=== PATIENT | female | born 1970 | race Caucasian/White ===

== ENCOUNTER 2017-11-13 12:28 | Emergency (ER) | payer BC ==
[2017-11-13 12:38] VITALS: BP 135/88
--- NOTE | 2017-11-13 12:47 | UC ---
Throat Pain/Nasal Jethro HPI - HPI Summary HPI Summary: This patient is a 47 year old F presenting [place] [facility] [place] complaint of sore throat that began one day ago. The patient rates the pain 5/10 in severity. Patient reports ears are feeling plugged and fatigue. Patient denies fever and chills. - History of Current Complaint Chief Complaint: UCGeneralIllness Stated Complaint: SORE THROAT,EAR PAIN Time Seen by Provider: 11/13/17 12:42 Hx Obtained From: Patient Hx Last Menstrual Period: hyster Onset/Duration: Lasting Days - 1, Still Present Severity: Moderate Pain Intensity: 5 Pain Scale Used: 0-10 Numeric Associated Signs & Symptoms: Negative: Fever - Allergies/Home Medications Allergies/Adverse Reactions: Allergies Allergy/AdvReac Type Severity Reaction Status Date / Time clarithromycin [From Biaxin] Allergy vomiting/hi Verified 11/13/17 12:38 ves Home Medications: Home Medications Cyanocobalamin INJ * 1,000 mg INJ MONTHLY 11/13/17 [History Confirmed 11/13/17] Hydrochlorothiazide TAB* [Hydrodiuril TAB*] 25 mg PO BID 11/13/17 [History Confirmed 11/13/17] Levothyroxine TAB* [Synthroid 150 MCG TAB*] 150 mcg PO DAILY 11/13/17 [History Confirmed 11/13/17] buPROPion TAB* [Wellbutrin TAB*] 300 mg PO DAILY 11/13/17 [History Confirmed ] PMH/Surg Hx/FS Hx/Imm Hx Endocrine History: Thyroid Disease Cardiovascular History: Hypertension - Surgical History Surgical History: Yes Surgery Procedure, Year, and Place: hyster, 3 sinus, tonsil,gb,heel spur - Family History Known Family History: Positive: Hypertension, Diabetes - Social History Alcohol Use: None Substance Use Type: None Smoking Status (MU): Current Every Day Smoker Review of Systems Constitutional: Fatigue ENT: Sore Throat, Other - ears feel plugges All Other Systems Reviewed And Are Negative: Yes Physical Exam - Summary Physical Exam Summary: VITAL SIGNS: Reviewed. GENERAL: Patient is a well-developed and nourished female who is lying comfortable in the stretcher. Patient is not in any acute respiratory distress. HEAD AND FACE: Normocephalic EYES: PERRLA, EOMI x 2. EARS: Hearing grossly intact. MOUTH: pharyngeal erythema NECK: Supple, trachea is midline, no adenopathy, no JVD, no carotid bruit. CHEST: Symmetric, no tenderness at palpation LUNGS: Clear to auscultation bilaterally. No wheezing or crackles. CVS: Regular rate and rhythm, S1 and S2 present, no murmurs or gallops appreciated. ABDOMEN: Soft, non-tender. Bowel sounds are normal. No abdominal abnormal pulsations. EXTREMITIES: Full ROM in all major joints, no edema, no cyanosis or clubbing. NEURO: Alert and oriented x 3. No acute neurological deficits. Speech is normal and follows commands. SKIN: Dry and warm Triage Information Reviewed: Yes Vital Signs: Initial Vital Signs Temp 98 F 11/13/17 12:34 Pulse 78 11/13/17 12:34 Resp 16 11/13/17 12:34 BP 135/88 11/13/17 12:34 Pulse Ox 100 11/13/17 12:34 Vital Signs Reviewed: Yes Throat Pain/Nasal Course/Dx - Course Assessment/Plan: 47-year-old female presents to the urgent care with a chief complaint of sore throat. Rapid strep is positive. Patient was given a prescription for Augmentin and she will take ibuprofen at home for pain and fever. Patient is hemodynamically stable alert and oriented 3. Patient will follow-up with PCP as needed. - Differential Dx/Diagnosis Provider Diagnoses: strep throat Discharge - Sign-Out/Discharge Documenting (check all that apply): Patient Departure - Discharge Plan Condition: Stable Disposition: HOME Prescriptions: Amoxicillin/Clavulanate TAB* [Augmentin TAB 875*] 875 mg PO BID #20 tab Patient Education Materials: Strep Throat (ED) Referrals: [facility] [Outside] No Primary Care Phys,NOPCP [Primary Care Provider] - Additional Instructions: Take medications as instructed and adhere to plan Take Acetaminophen or ibuprofen for pain or fever Increase your fluid intake Return to the or go to the emergency department if symptoms worsen Follow-up with primary care physician in next 2-3 days - Billing Disposition and Condition Condition: STABLE Disposition: Home
== END 2017-11-13 13:04 | disposition home or self-care (01) ==
LOC: UCEAST 12:28
DX: J02.0 Streptococcal pharyngitis (principal); H93.8X3 Other specified disorders of ear, bilateral; R53.83 Other fatigue; E07.9 Disorder of thyroid, unspecified; I10 Essential (primary) hypertension; Z88.1 Allergy status to other antibiotic agents; Z82.49 Family history of ischemic heart disease and other diseases of the circulatory system; Z83.3 Family history of diabetes mellitus; F17.200 Nicotine dependence, unspecified, uncomplicated
CPT/HCPCS: 87651; 99212; G0463

== ENCOUNTER 2017-11-24 10:33 | Emergency (ER) | payer BC ==
[2017-11-24 12:11] VITALS: BP 124/85
--- NOTE | 2017-11-24 12:26 | UC ---
Throat Pain/Nasal Jethro HPI - HPI Summary HPI Summary: has been n Augmentin for 7 days for ear infection and strep throat has developed a painful red palate and tongue--- - History of Current Complaint Chief Complaint: UCGeneralIllness Stated Complaint: THROAT PAIN Time Seen by Provider: 11/24/17 12:19 Hx Obtained From: Patient Hx Last Menstrual Period: hyster ?: No Onset/Duration: Sudden Onset, Lasting Days - 1, Still Present Pain Intensity: 3 Pain Scale Used: 0-10 Numeric Cough: None Associated Signs & Symptoms: Positive: Negative - Allergies/Home Medications Allergies/Adverse Reactions: Allergies Allergy/AdvReac Type Severity Reaction Status Date / Time clarithromycin [From Biaxin] Allergy vomiting/hi Verified 11/24/17 12:01 ves PMH/Surg Hx/FS Hx/Imm Hx Previously Healthy: No Endocrine History: Hypothyroidism Cardiovascular History: Hypertension Psychological History: Depression - Surgical History Surgical History: Yes Surgery Procedure, Year, and Place: hysterectomy, 3 sinus surgeries, tonsilectomy, gallbladder removal,heel spur removal - Family History Known Family History: Positive: Hypertension, Diabetes - Social History Occupation: Employed Full-time Lives: With Family Alcohol Use: None Substance Use Type: None Smoking Status (MU): Current Every Day Smoker Amount Used/How Often: 1/3 PPD Review of Systems Constitutional: Negative Skin: Negative Eyes: Negative ENT: Negative, Other - mouth is red and sore Respiratory: Negative Cardiovascular: Negative Gastrointestinal: Negative Genitourinary: Negative Motor: Negative Neurovascular: Negative Musculoskeletal: Negative Neurological: Negative Psychological: Negative Is Patient Immunocompromised?: No All Other Systems Reviewed And Are Negative: Yes Physical Exam Triage Information Reviewed: Yes Appearance: Well-Appearing, No Pain Distress, Obese Vital Signs: Initial Vital Signs Temp 98.4 F 11/24/17 12:03 Pulse 83 11/24/17 12:03 Resp 18 11/24/17 12:03 BP 124/85 11/24/17 12:03 Pulse Ox 98 11/24/17 12:03 Vital Signs Reviewed: Yes Eye Exam: Normal Eyes: Positive: Conjunctiva Clear ENT Exam: Normal ENT: Positive: Normal ENT inspection, Hearing grossly normal, Pharyngeal erythema, TMs normal, Uvula midline. Negative: Nasal congestion, Trismus, Muffled voice, Hoarse voice, Dental tenderness, Sinus tenderness Dental Exam: Normal Neck exam: Normal Neck: Positive: Supple, Nontender, No Lymphadenopathy Respiratory Exam: Normal Respiratory: Positive: Chest non-tender, Lungs clear, Normal breath sounds, No respiratory distress, No accessory muscle use Cardiovascular Exam: Normal Cardiovascular: Positive: RRR, No Murmur, Pulses Normal, Brisk Capillary Refill Musculoskeletal Exam: Normal Musculoskeletal: Positive: Strength Intact, ROM Intact, No Edema Neurological Exam: Normal Neurological: Positive: Alert, Muscle Tone Normal Psychological Exam: Normal Skin Exam: Normal Throat Pain/Nasal Course/Dx - Course Assessment/Plan: finish augmentin, nystatin swish and swallow follow with pcp prn - Differential Dx/Diagnosis Provider Diagnoses: oral candidiasis Discharge - Sign-Out/Discharge Documenting (check all that apply): Patient Departure - Discharge Plan Condition: Stable Disposition: HOME Prescriptions: Nystatin SUSPENSION ORAL SYR* 500,000 units PO QID 10 Days #200 ml Patient Education Materials: Oral Candidiasis (ED) Referrals: [facility] [Outside] - If Needed - Billing Disposition and Condition Condition: STABLE Disposition: Home
== END 2017-11-24 12:38 | disposition home or self-care (01) ==
LOC: UCEAST 10:33
DX: B37.0 Candidal stomatitis (principal); I10 Essential (primary) hypertension; E03.9 Hypothyroidism, unspecified; F32.9 Major depressive disorder, single episode, unspecified; F17.210 Nicotine dependence, cigarettes, uncomplicated
CPT/HCPCS: 99212; G0463

== ENCOUNTER 2018-02-08 13:45 | Emergency (ER) | payer BC ==
[2018-02-08 14:24] VITALS: BP 157/95
--- NOTE | 2018-02-08 14:47 | UC ---
Complaint Female HPI - HPI Summary HPI Summary: 2 wk hx of intermittent dysuria, increased frequency and urge to urinate w/ oliguria. denies fever, vaginal discharge, back pain, abd pain, n/v. improves w / fluids, worsens w/ holding urine. Has not tried anything otc. She thinks it could be a warming lubricant her and her partner used. +sexually active. meds reviewed during this visit. - History Of Current Complaint Chief Complaint: UCGU Stated Complaint: URINARY ISSUE Time Seen by Provider: 02/08/18 14:35 Hx Obtained From: Patient Hx Last Menstrual Period: partial hysterectomy ?: No - +hysterectomy Timing: Intermittent Severity Initially: Mild Pain Intensity: 1 - Risk Factors Ovarian Torsion Risk Factor: Hysterectomy - Allergies/Home Medications Allergies/Adverse Reactions: Allergies Allergy/AdvReac Type Severity Reaction Status Date / Time ciprofloxacin [From Cipro] Allergy Hives Verified 02/08/18 14:24 clarithromycin [From Biaxin] Allergy vomiting/hi Verified 02/08/18 14:24 ves PMH/Surg Hx/FS Hx/Imm Hx Endocrine History: Hypothyroidism Cardiovascular History: Hypertension - Surgical History Surgical History: Yes Surgery Procedure, Year, and Place: hysterectomy, 3 sinus surgeries, tonsilectomy, gallbladder removal,heel spur removal, D&C - Family History Known Family History: Positive: Hypertension, Diabetes - Social History Alcohol Use: None Substance Use Type: None Smoking Status (MU): Current Every Day Smoker Amount Used/How Often: 1/3 PPD - Immunization History Most Recent Tetanus Shot: UTD Review of Systems Constitutional: Negative Gastrointestinal: Negative Genitourinary: Dysuria, Frequency Musculoskeletal: Negative All Other Systems Reviewed And Are Negative: Yes Physical Exam Triage Information Reviewed: Yes Appearance: Well-Appearing Vital Signs: Initial Vital Signs Temp 98.3 F 02/08/18 14:20 Pulse 87 02/08/18 14:20 Resp 18 02/08/18 14:20 BP 157/95 02/08/18 14:20 Pulse Ox 100 02/08/18 14:20 Vital Signs Reviewed: Yes Respiratory Exam: Normal Respiratory: Positive: Lungs clear Cardiovascular Exam: Normal Abdominal Exam: Normal, Other - pt declined gu exam Abdomen Description: Positive: Nontender. Negative: CVA Tenderness (R), CVA Tenderness (L) Pelvic Exam: Positive: Other - declined Psychological Exam: Normal Complaint Female Dx - Course Course Of Treatment: 2 wk hx of intermittent dysuria w/ + leuks on UA will tx emprically. cx pending. sending gc/chlam requested by pt. bp elevated, recommended f/u and to take her meds. - Differential Dx/Diagnosis Differential Diagnosis/HQI/PQRI: Sexually Transmitted Disease, Urinary Tract Infection Provider Diagnoses: UTI - Physician Notifications Discussed Patient Care With: Yahaira Quintana Time Discussed With Above Provider: 15:06 Discharge - Sign-Out/Discharge Documenting (check all that apply): Patient Departure All imaging exams completed and their final reports reviewed: No Studies - Discharge Plan Condition: Good Disposition: HOME Prescriptions: Sulfamethox/Trimethoprim DS* [Bactrim DS 800/160 TAB*] 1 tab PO BID #6 tab Patient Education Materials: Urinary Tract Infection in Women (ED) Referrals: No Primary Care Phys,NOPCP [Primary Care Provider] - - Billing Disposition and Condition Condition: GOOD Disposition: Home - Attestation Statements Provider Attestation: I was available for consult. This patient was seen by the ABDELRAHMAN. The patient was not presented to me, but not seen or examined by me. -Vicki
== END 2018-02-08 15:30 | disposition home or self-care (01) ==
LOC: UCEAST 13:45
DX: N39.0 Urinary tract infection, site not specified (principal); Z90.711 Acquired absence of uterus with remaining cervical stump; Z88.1 Allergy status to other antibiotic agents; F17.200 Nicotine dependence, unspecified, uncomplicated
CPT/HCPCS: 81003; 87086; 87491; 87591; 99212; G0463

== ENCOUNTER 2018-03-13 15:07 | Emergency (ER) | payer BC ==
--- NOTE | 2018-03-13 15:16 | UC ---
Complaint Female HPI - HPI Summary HPI Summary: 47 yo female presents with urinary pressure, burning, and frequency since yesterday. She took AZO today and her symptoms mildly improved. She tells me that she had a UTI about a month ago and was rx'd Bactrim for 3 days. Her symptoms resolved for about a week and then returned, but did not get bad until yesterday. She is also having some right flank pain. Denies fever, chills, abdominal pain, hematuria, vaginal bleeding or discharge. - History Of Current Complaint Stated Complaint: BACK PAIN, AND BURNING URINATION Time Seen by Provider: 03/13/18 15:15 Hx Obtained From: Patient Hx Last Menstrual Period: partial hysterectomy Onset/Duration: Gradual Onset Severity Initially: Mild Severity Currently: Moderate Pain Intensity: 5 Pain Scale Used: 0-10 Numeric - Allergies/Home Medications Allergies/Adverse Reactions: Allergies Allergy/AdvReac Type Severity Reaction Status Date / Time ciprofloxacin [From Cipro] Allergy Hives Verified 03/13/18 15:13 clarithromycin [From Biaxin] Allergy vomiting/hi Verified 03/13/18 15:13 ves Home Medications: Home Medications Cranberry Conc/C/Bacill Coag [Azo Cranberry 250-30 mg] 1 tab PO Q6HR PRN [History Confirmed 03/13/18] PMH/Surg Hx/FS Hx/Imm Hx Endocrine History: Hypothyroidism Cardiovascular History: Hypertension Psychological History: Anxiety - Surgical History Surgical History: Yes Surgery Procedure, Year, and Place: hysterectomy, 3 sinus surgeries, tonsilectomy, gallbladder removal,heel spur removal, D&C - Family History Known Family History: Positive: Hypertension, Diabetes - Social History Occupation: Employed Full-time Lives: With Family Alcohol Use: None Substance Use Type: None Smoking Status (MU): Current Every Day Smoker Amount Used/How Often: 1/3 PPD - Immunization History Most Recent Tetanus Shot: UTD Review of Systems All Other Systems Reviewed And Are Negative: Yes Constitutional: Positive: Negative Skin: Positive: Negative Respiratory: Positive: Negative Cardiovascular: Positive: Negative Gastrointestinal: Positive: Negative Genitourinary: Positive: Dysuria, Frequency, Urgency Neurological: Positive: Negative Psychological: Positive: Negative Physical Exam - Summary Physical Exam Summary: GENERAL: NAD. WDWN. No pain distress. SKIN: No rashes, sores, lesions, or open wounds. NECK: Supple. Nontender. No lymphadenopathy. CHEST: CTAB. No r/r/w. No accessory muscle use. Breathing comfortably and in no distress. CV: RRR. Without m/r/g. Pulses intact. Cap refill <2seconds ABDOMEN: Soft. NTTP. No distention or guarding. No CVA tenderness. Bowel sounds present NEURO: Alert. PSYCH: Age appropriate behavior. Triage Information Reviewed: Yes Vital Signs: Vital Signs: Temp Pulse Resp BP Pulse Ox 97.9 F 84 18 141/79 98 03/13/18 15:15 03/13/18 15:15 03/13/18 15:15 03/13/18 15:15 03/13/18 15:15 Vital Signs Reviewed: Yes Complaint Female Dx - Course Course Of Treatment: Unable to perform UA as pt took AZO today. Will treat with Keflex and send her urine for culture. - Differential Dx/Diagnosis Provider Diagnoses: UTI Discharge - Sign-Out/Discharge Documenting (check all that apply): Patient Departure All imaging exams completed and their final reports reviewed: No Studies - Discharge Plan Condition: Stable Disposition: HOME Prescriptions: Cephalexin CAP* [Keflex CAP*] 500 mg PO BID #10 cap Patient Education Materials: Urinary Tract Infection in Women (DC) Referrals: No Primary Care Phys,NOPCP [Primary Care Provider] - Additional Instructions: If you develop a fever, shortness of breath, chest pain, new or worsening symptoms - please call your PCP or go to the ED. Your blood pressure was high at todays visit. Please see your primary provider within 4 weeks for recheck and re-evaluation. - Billing Disposition and Condition Condition: STABLE Disposition: Home
[2018-03-13 15:19] VITALS: BP 141/79
--- NOTE | 2018-03-14 16:27 | ED ---
Progress - Progress Note Progress Note: 03/14/2018 Urine culture positive for E.coli. Pt Rx Keflex which covers. Awaiting culture sensitivity, No change Valeria Bauman PA-C Course/Dx - Course Course Of Treatment: Unable to perform UA as pt took AZO today. Will treat with Keflex and send her urine for culture. Discharge - Sign-Out/Discharge Documenting (check all that apply): Patient Departure - d/c home All imaging exams completed and their final reports reviewed: No Studies - Discharge Plan Condition: Stable Disposition: HOME Prescriptions: Cephalexin CAP* [Keflex CAP*] 500 mg PO BID #10 cap Patient Education Materials: Urinary Tract Infection in Women (DC) Referrals: No Primary Care Phys,NOPCP [Primary Care Provider] - Additional Instructions: If you develop a fever, shortness of breath, chest pain, new or worsening symptoms - please call your PCP or go to the ED. Your blood pressure was high at todays visit. Please see your primary provider within 4 weeks for recheck and re-evaluation. - Billing Disposition and Condition Condition: STABLE Disposition: Home
== END 2018-03-13 16:07 | disposition home or self-care (01) ==
LOC: UCEAST 15:07
DX: N39.0 Urinary tract infection, site not specified (principal); F17.210 Nicotine dependence, cigarettes, uncomplicated
CPT/HCPCS: 87077; 87086; 87186; 99212; G0463

== ENCOUNTER 2022-12-26 07:17 | Observation (INO) ==
[~2022-12-26 07:17] MED LIST: Buffered Lidocaine 1% SYRIN 1 ml INTRADERM ONE
[2022-12-26] MEDS ORDERED: Chlorhexidine MOUTHWASH 0.12% 15 ML UDC ONE (07:33)
[2022-12-26] MEDS ORDERED: ceFAZolin 2 GM in NS PREMIX 2 GM/100 ML BAG IVPB ONE (07:42)
[2022-12-26] MEDS: Lactated Ringers 1000 ml BAG 1,000 ML IV SCH ×3 (08:10→17:40)
[2022-12-26 08:26] LABS: Rapid COVID-19 Molecular Undetected (Undetected)
[2022-12-26] MEDS ORDERED: ceFAZolin VIAL VIAL ONE (09:32)
[2022-12-26] MEDS ORDERED: Lidocaine 1% w EPI 1:100,000 MDV 20 ML VIAL ONE (09:32)
[2022-12-26] MEDS ORDERED: Thrombin 5,000 UNITS 1 APPLIC KIT - topical use - TOPICAL ONE (09:32)
[2022-12-26] MEDS ORDERED: Gelfoam Sponge SIZE 100 SPONGE ONE (09:32)
[2022-12-26] MEDS ORDERED: Midazolam 2 mg/2 ml VIAL 1 mg/ml 2 ml VIAL (2 mg) ONE (10:10)
[2022-12-26] MEDS ORDERED: Rocuronium 50 mg VIAL 10 mg/ml 5 ml VIAL (50 mg) ONE (10:21)
[2022-12-26] MEDS ORDERED: HYDROmorphone 0.5 MG/0.5 ML SYRINGE ONE ×2 (11:06→11:39)
[2022-12-26] MEDS ORDERED: Ondansetron 4 mg VIAL 2 MG/ML 2 ml VIAL IV PRN ×2 (11:13→14:04)
[2022-12-26] MEDS ORDERED: Naloxone 0.4 mg VIAL 0.4 mg/ml 1 ml VIAL IV PRN (11:13)
[2022-12-26] MEDS ORDERED: Acetaminophen IV 1 GM/100ML 1,000 MG/100 ML BAG IV ONE ×2 (11:13→11:47)
[2022-12-26] MEDS ORDERED: fentaNYL 100 mcg/2 ml 50 MCG/ML VIAL IV PRN (11:13)
[2022-12-26] MEDS ORDERED: Ondansetron 4 mg VIAL 2 MG/ML 2 ml VIAL ONE (11:40)
[2022-12-26] MEDS ORDERED: Succinylcholine 200 mg VIAL 20 mg/ml 10 ml VIAL (200 mg) ONE (11:40)
[2022-12-26] MEDS ORDERED: Dexamethasone IV 4 MG/ML VIAL 1 ml VIAL ONE (11:40)
[2022-12-26] MEDS ORDERED: Propofol 10 MG/ML 20 ML BTL ONE (11:40)
[2022-12-26] MEDS ORDERED: Sevoflurane BOTTLE ONE (12:10)
[2022-12-26] MEDS ORDERED: Calcium Carb (TUMS) 500 mg CHEW TAB PO PRN (14:04)
[2022-12-26] MEDS ORDERED: Senna TAB 8.6 mg TAB PO PRN (14:04)
[2022-12-26] MEDS ORDERED: Morphine 2 MG/ML SYRINGE IV PRN (14:04)
[2022-12-26] MEDS ORDERED: Albuterol/Ipratropium RESP(NF) MDI (Combivent Respimat) INH PRN (14:08)
[2022-12-26] MEDS ORDERED: Al Hydrox/Mg Hydrox/Simet LIQ 30 ML UDC PO PRN (14:17)
[2022-12-26] MEDS ORDERED: HYDROmorphone 1 MG/1 ML SYRINGE ONE (14:33)
[2022-12-26] MEDS: HYDROmorphone 1 MG/1 ML SYRINGE IV PRN ×3 (14:36→15:06)
[2022-12-26] MEDS ORDERED: Morphine 2 MG/ML SYRINGE ONE (17:06)
[2022-12-26] MEDS: HYDROcodone/ACETAMIN 5/325 mg TAB PO PRN (20:44)
[2022-12-27] MEDS: HYDROcodone/ACETAMIN 5/325 mg TAB PO PRN ×4 (00:41→13:16)
[2022-12-27] MEDS: Lactated Ringers 1000 ml BAG 1,000 ML IV SCH (05:42)
[2022-12-27] MEDS ORDERED: Nicotine PATCH 14 MG/24 HR PATCH TRANSDERM SCH (09:00)
[2022-12-27 14:01] VITALS: BP 110/71
== END 2022-12-27 18:15 | disposition home or self-care (01) ==
LOC: OR 07:17 → SSU 07:17
PROVIDERS: ADMIT Neurological Surgery; ATTEND Neurological Surgery

== ENCOUNTER 2023-01-30 15:48 | Inpatient (IN) ==
[2023-01-30 16:06] LABS: ABS Basophils 0.1 10^3/uL (0.0-0.1); ABS Eosinophils 0.7 10^3/uL (0.0-0.5); ABS Lymphocytes 0.8 10^3/uL (1.0-4.8); ABS Monocytes 1.3 10^3/uL (0.0-0.9); ABS Neutrophils 10.2 10^3/uL (1.5-7.6); Eosinophil % 5.6 %; Hematocrit 31.5 % (35-45); Hemoglobin 10.7 g/dL (11.5-14.3); Lymphocyte % 5.9 %; Mean Corpuscular Hemoglobin 29.4 pg (27-33); Mean Corpuscular Hgb Conc 33.9 g/dL (31-36); Mean Corpuscular Volume 86.7 fL (80-97); Mean Platelet Volume 6.6 fL (7.5-11.2); Platelet Count 446 10^3/uL (150-450); Red Blood Count 3.63 10^6/uL (3.63-4.92); Red Cell Distribution Width 16.4 % (12-17)
[2023-01-30 16:16] LABS: INR 1.07 (0.83-1.13)
[2023-01-30 16:27] LABS: Albumin 3.5 g/dL (3.2-5.2); Calcium 9.7 mg/dL (8.6-10.3); Potassium 3.4 mmol/L (3.5-5.0); Total Bilirubin 0.4 mg/dL (0.2-1.0)
[2023-01-30 16:33] LABS: Albumin/Globulin Ratio 1.4 (1-3); Creatinine, Serum 0.9 mg/dL (0.51-0.95); Globulin 2.5 g/dL (2-4); eGFR CKD-EPI 77.4 (>60)
[2023-01-30 17:41] LABS: High Sensitivity Troponin 1 Hr 3 pg/mL (<15)
[2023-01-30] MEDS ORDERED: HYDROcodone/ACETAMIN 5/325 mg TAB PO ONE (19:17)
[2023-01-30] MEDS ORDERED: Iohexol 350 (CONTRAST) 500 ML MDV IV ONE ×2 (21:11→23:31)
[2023-01-30] MEDS ORDERED: Morphine 4 MG/ML VIAL (1 ml) IV ONE (23:15)
[2023-01-31] MEDS ORDERED: Ondansetron 4 mg VIAL 2 MG/ML 2 ml VIAL IV PRN (04:08)
[2023-01-31] MEDS ORDERED: Al Hydrox/Mg Hydrox/Simet LIQ 30 ML UDC PO PRN (04:14)
[2023-01-31] MEDS ORDERED: Albuterol HFA INHALER 8 gm MDI INH PRN (04:14)
[2023-01-31] MEDS ORDERED: Calcium Carb (TUMS) 500 mg CHEW TAB PO PRN (04:14)
[2023-01-31] MEDS ORDERED: NS 0.9% 1000 ml BAG 1,000 ML IV SCH (04:15)
[2023-01-31] MEDS: HYDROcodone/ACETAMIN 5/325 mg TAB PO PRN ×3 (05:14→22:09)
[2023-01-31] MEDS: Morphine ER 15 mg TAB ** extended release PO SCH (12:19)
[2023-01-31] MEDS ORDERED: Midazolam 2 mg/2 ml VIAL 1 mg/ml 2 ml VIAL (2 mg) ONE (15:18)
[2023-01-31] MEDS ORDERED: Senna TAB 8.6 mg TAB PO PRN (15:34)
[2023-01-31] MEDS ORDERED: Polyethylene Glycol 3350 17 GM PACKET PO PRN (15:34)
[2023-01-31] MEDS ORDERED: Magnesium Hydroxide LIQ 30 ML UDC PO PRN (15:34)
[2023-01-31] MEDS ORDERED: Potassium Chlor 20 meq TAB.ER PO ONE (16:51)
[2023-01-31 20:46] LABS: Uric Acid 6.7 mg/dL (2.3-6.6)
[2023-01-31] MEDS: Magnesium Hydroxide LIQ 30 ML UDC PO SCH (21:41)
[2023-01-31] MEDS: Enoxaparin 40 MG/0.4 ML SYR SUBCUT SCH (21:42)
[2023-01-31 21:44] LABS: % Iron Saturation 9 % (15-55); .Transferrin 157 mg/dL (203-362); Iron < 20 ug/dL (50-212); LDH 422 U/L (140-271); Total Iron Binding Capacity 220 mcg/dL (250-450); Unsaturated Iron Binding 200 ug/dL
[2023-02-01] MEDS: Morphine ER 15 mg TAB ** extended release PO SCH (00:12)
[2023-02-01] MEDS: HYDROcodone/ACETAMIN 5/325 mg TAB PO PRN ×2 (06:02→20:16)
[2023-02-01 06:17] LABS: ABS Eosinophils 0.4 10^3/uL (0.0-0.5); ABS Lymphocytes 0.6 10^3/uL (1.0-4.8); ABS Monocytes 1.1 10^3/uL (0.0-0.9); ABS Neutrophils 6.7 10^3/uL (1.5-7.6); Eosinophil % 4.7 %; Hematocrit 28.6 % (35-45); Hemoglobin 9.9 g/dL (11.5-14.3); Lymphocyte % 6.6 %; Mean Corpuscular Hemoglobin 29.9 pg (27-33); Mean Corpuscular Hgb Conc 34.7 g/dL (31-36); Mean Platelet Volume 6.9 fL (7.5-11.2); Platelet Count 408 10^3/uL (150-450); Red Blood Count 3.32 10^6/uL (3.63-4.92); Red Cell Distribution Width 16.2 % (12-17); White Blood Count 8.7 10^3/uL (3.8-11.8)
[2023-02-01 06:51] LABS: Calcium 8.9 mg/dL (8.6-10.3); Creatinine, Serum 0.68 mg/dL (0.51-0.95); Magnesium 1.8 mg/dL (1.9-2.7); Potassium 3.8 mmol/L (3.5-5.0); eGFR CKD-EPI 105.4 (>60)
[2023-02-01] MEDS: Magnesium Hydroxide LIQ 30 ML UDC PO SCH ×2 (08:54→20:39)
[2023-02-01] MEDS ORDERED: Morphine ER 15 mg TAB ** extended release PO ONE (10:26)
[2023-02-01 13:03] LABS: Total Protein 5.8 g/dL (6.4-8.9)
[2023-02-01 17:16] LABS: Body Fluid Total Nucleated 4113 /mcL
[2023-02-01 17:23] LABS: Body Fluid Appearance Cloudy; Body Fluid Color Yellow; Body Fluid Source Pleural Fluid
[2023-02-01 17:41] LABS: Body Fluid Mono 28 %; Body Fluid Total Cells Counted 200
[2023-02-01] MEDS: Mometasone/Formoter 200/5 MDI INH SCH (20:01)
[2023-02-01] MEDS: Enoxaparin 40 MG/0.4 ML SYR SUBCUT SCH (20:09)
[2023-02-01] MEDS: Morphine ER 30 mg TAB ** extended release PO SCH (20:28)
[2023-02-01] MEDS: Senna TAB 8.6 mg TAB PO SCH (20:39)
[2023-02-02] MEDS: HYDROcodone/ACETAMIN 5/325 mg TAB PO PRN ×3 (03:53→22:17)
[2023-02-02] MEDS: Mometasone/Formoter 200/5 MDI INH SCH ×2 (08:11→19:12)
[2023-02-02 09:04] LABS: Calcium 8.6 mg/dL (8.6-10.3); Creatinine, Serum 0.73 mg/dL (0.51-0.95); Potassium 3.9 mmol/L (3.5-5.0); eGFR CKD-EPI 99.5 (>60)
[2023-02-02 09:15] LABS: ABS Basophils 0.1 10^3/uL (0.0-0.1); ABS Eosinophils 0.3 10^3/uL (0.0-0.5); ABS Lymphocytes 0.5 10^3/uL (1.0-4.8); ABS Neutrophils 6.1 10^3/uL (1.5-7.6); ABS Nucleated RBC 0.01 10^3/ul; Eosinophil % 4.3 %; Hematocrit 29.5 % (35-45); Hemoglobin 10.1 g/dL (11.5-14.3); Lymphocyte % 6.3 %; Mean Corpuscular Hemoglobin 29.5 pg (27-33); Mean Corpuscular Hgb Conc 34.4 g/dL (31-36); Mean Corpuscular Volume 85.9 fL (80-97); Mean Platelet Volume 6.9 fL (7.5-11.2); Nucleated Red Blood Cells % 0.1 /100 WBC (0.0-0.4); Platelet Count 391 10^3/uL (150-450); Red Blood Count 3.43 10^6/uL (3.63-4.92); Red Cell Distribution Width 16.1 % (12-17)
[2023-02-02] MEDS: Morphine ER 30 mg TAB ** extended release PO SCH ×2 (10:30→20:21)
[2023-02-02] MEDS: Magnesium Hydroxide LIQ 30 ML UDC PO SCH ×2 (11:03→20:20)
[2023-02-02 12:15] LABS: Beta 2 Microglobulin 3.32 mcg/mL
[2023-02-02] MEDS: Lactated Ringers 1000 ml BAG 1,000 ML IV SCH (16:39)
[2023-02-02 17:18] LABS: Hepatitis B Surface Antigen Nonreactive (Nonreactive)
[2023-02-02 17:35] LABS: Hepatitis B Surface Ab Not Immune (Immune)
[2023-02-02 17:36] LABS: Hepatitis C Antibody Negative (Negative)
[2023-02-02 20:00] LABS: Potassium 4.1 mmol/L (3.5-5.0)
[2023-02-02 20:05] LABS: Creatinine, Serum 0.76 mg/dL (0.51-0.95); eGFR CKD-EPI 94.8 (>60)
[2023-02-02] MEDS: Enoxaparin 40 MG/0.4 ML SYR SUBCUT SCH (20:20)
[2023-02-02] MEDS: Senna TAB 8.6 mg TAB PO SCH (20:22)
[2023-02-03 05:30] LABS: ABS Basophils 0.1 10^3/uL (0.0-0.1); ABS Eosinophils 0.4 10^3/uL (0.0-0.5); ABS Lymphocytes 0.6 10^3/uL (1.0-4.8); ABS Monocytes 0.9 10^3/uL (0.0-0.9); ABS Neutrophils 6.6 10^3/uL (1.5-7.6); Eosinophil % 5.1 %; Hematocrit 31.6 % (35-45); Hemoglobin 10.7 g/dL (11.5-14.3); Lymphocyte % 6.8 %; Mean Corpuscular Hemoglobin 29.3 pg (27-33); Mean Corpuscular Volume 85.9 fL (80-97); Mean Platelet Volume 6.6 fL (7.5-11.2); Platelet Count 420 10^3/uL (150-450); Red Blood Count 3.67 10^6/uL (3.63-4.92); Red Cell Distribution Width 16.4 % (12-17); White Blood Count 8.6 10^3/uL (3.8-11.8)
[2023-02-03 05:49] LABS: Phosphorus 4.4 mg/dL (2.5-5.0); Uric Acid 5.9 mg/dL (2.3-6.6)
[2023-02-03] MEDS: HYDROcodone/ACETAMIN 5/325 mg TAB PO PRN ×3 (06:07→19:49)
[2023-02-03] MEDS: Lactated Ringers 1000 ml BAG 1,000 ML IV SCH ×2 (06:07→19:40)
[2023-02-03] MEDS: Mometasone/Formoter 200/5 MDI INH SCH ×2 (07:13→19:14)
[2023-02-03] MEDS: Morphine ER 30 mg TAB ** extended release PO SCH ×2 (08:44→19:50)
[2023-02-03] MEDS: Magnesium Hydroxide LIQ 30 ML UDC PO SCH ×2 (08:46→19:51)
[2023-02-03] MEDS ORDERED: PALONOSETRON HCL 0.05 MG/ML (0.25 MG) SYRINGE (0.05 MG/ML) IV ONE (14:00)
[2023-02-03 14:02] LABS: Lactate Dehydrogenase, BF 842 U/L
[2023-02-03 14:21] LABS: Albumin 2.5 g/dL (3.4-4.7); Albumin/Globulin Ratio 0.85; Flag, M-protein Isotype Negative (Negative); Gamma Globulin 0.8 g/dL (0.6-1.6); Lambda Free Light Chain, S 1.78 mg/dL; Total Protein 5.4 g/dL (6.3 - 7.9)
[2023-02-03] MEDS ORDERED: NS 0.9% IVPB ONE (14:30)
[2023-02-03] MEDS ORDERED: CYCLOPHOSPHAMIDE IVPB ONE (14:30)
[2023-02-03] MEDS ORDERED: Prochlorperazine 5 mg/ml 2 ml VIAL (10 mg) IV PRN (14:43)
[2023-02-03] MEDS ORDERED: DOXORUBICIN IVPB ONE (15:00)
[2023-02-03] MEDS ORDERED: vinCRIStine 2 MG in NS 0.9% 50 ML 50 ML IVPB ONE (15:30)
[2023-02-03] MEDS: Enoxaparin 40 MG/0.4 ML SYR SUBCUT SCH (19:48)
[2023-02-03] MEDS: Senna TAB 8.6 mg TAB PO SCH (19:49)
[2023-02-04] MEDS: HYDROcodone/ACETAMIN 5/325 mg TAB PO PRN (04:09)
[2023-02-04 05:39] LABS: ABS Basophils 0.1 10^3/uL (0.0-0.1); ABS Lymphocytes 0.4 10^3/uL (1.0-4.8); ABS Monocytes 0.7 10^3/uL (0.0-0.9); ABS Neutrophils 10.2 10^3/uL (1.5-7.6); Hematocrit 27.5 % (35-45); Hemoglobin 9.4 g/dL (11.5-14.3); Lymphocyte % 3.3 %; Mean Corpuscular Hemoglobin 29.3 pg (27-33); Mean Corpuscular Hgb Conc 34.1 g/dL (31-36); Mean Platelet Volume 6.8 fL (7.5-11.2); Platelet Count 355 10^3/uL (150-450); Red Cell Distribution Width 16.1 % (12-17); White Blood Count 11.4 10^3/uL (3.8-11.8)
[2023-02-04 05:59] LABS: Phosphorus 4.1 mg/dL (2.5-5.0)
[2023-02-04] MEDS ORDERED: Albuterol 2.5mg/3 ml (0.083%) NEB.SOLN INH PRN (08:00)
[2023-02-04] MEDS ORDERED: methylPREDNISolone SOD SUCC 125 mg 2 ML VIAL IV PRN (08:00)
[2023-02-04] MEDS ORDERED: Meperidine 50 mg/ml SYRINGE 1 ml IV PRN (08:00)
[2023-02-04] MEDS ORDERED: Famotidine IV 10 MG/ML 2 ml VIAL (20 mg) IV PRN (08:00)
[2023-02-04] MEDS: Morphine ER 30 mg TAB ** extended release PO SCH ×2 (08:02→19:25)
[2023-02-04] MEDS: Magnesium Hydroxide LIQ 30 ML UDC PO SCH ×2 (08:02→19:25)
[2023-02-04] MEDS: Mometasone/Formoter 200/5 MDI INH SCH ×2 (08:04→19:19)
[2023-02-04] MEDS ORDERED: methylPREDNISolone SOD SUCC 125 mg 2 ML VIAL IV ONE (08:30)
[2023-02-04] MEDS ORDERED: Famotidine IV 10 MG/ML 2 ml VIAL (20 mg) IV ONE (08:30)
[2023-02-04] MEDS ORDERED: RITUXIMAB ABBS IVPB ONE (09:00)
[2023-02-04] MEDS ORDERED: NS 0.9% IVPB ONE (09:00)
[2023-02-04 09:09] LABS: Fluid Type, Protein, Total PLEURAL; Total Protein, BF 3.6 g/dL
[2023-02-04 10:01] LABS: Calcium 8.5 mg/dL (8.6-10.3); Creatinine, Serum 0.71 mg/dL (0.51-0.95); Potassium 4.5 mmol/L (3.5-5.0); eGFR CKD-EPI 102.9 (>60)
[2023-02-04] MEDS ORDERED: Furosemide 20 mg/2 ml IV VIAL IV ONE (11:57)
[2023-02-04] MEDS: Senna TAB 8.6 mg TAB PO SCH (19:25)
[2023-02-04] MEDS: Enoxaparin 40 MG/0.4 ML SYR SUBCUT SCH (19:27)
[2023-02-05 06:18] LABS: ABS Lymphocytes 0.3 10^3/uL (1.0-4.8); ABS Monocytes 0.3 10^3/uL (0.0-0.9); ABS Neutrophils 12.2 10^3/uL (1.5-7.6); ABS Nucleated RBC 0.01 10^3/ul; Eosinophil % 0.1 %; Hematocrit 28.5 % (35-45); Hemoglobin 9.6 g/dL (11.5-14.3); Lymphocyte % 2.3 %; Mean Corpuscular Hemoglobin 29.2 pg (27-33); Mean Corpuscular Hgb Conc 33.8 g/dL (31-36); Mean Corpuscular Volume 86.5 fL (80-97); Mean Platelet Volume 6.8 fL (7.5-11.2); Platelet Count 444 10^3/uL (150-450); Red Blood Count 3.29 10^6/uL (3.63-4.92); Red Cell Distribution Width 16.5 % (12-17); White Blood Count 12.8 10^3/uL (3.8-11.8)
[2023-02-05 06:30] LABS: Calcium 8.8 mg/dL (8.6-10.3); Creatinine, Serum 0.67 mg/dL (0.51-0.95); Phosphorus 3.2 mg/dL (2.5-5.0); Potassium 4.1 mmol/L (3.5-5.0); Uric Acid 7.1 mg/dL (2.3-6.6); eGFR CKD-EPI 105.8 (>60)
[2023-02-05] MEDS: Mometasone/Formoter 200/5 MDI INH SCH ×2 (07:10→20:20)
[2023-02-05] MEDS: Magnesium Hydroxide LIQ 30 ML UDC PO SCH ×2 (07:46→21:41)
[2023-02-05] MEDS: Morphine ER 30 mg TAB ** extended release PO SCH ×2 (07:48→21:40)
[2023-02-05] MEDS ORDERED: Furosemide 20 mg/2 ml IV VIAL IV ONE (09:14)
[2023-02-05] MEDS: Senna TAB 8.6 mg TAB PO SCH (21:40)
[2023-02-05] MEDS: Enoxaparin 40 MG/0.4 ML SYR SUBCUT SCH (21:43)
[2023-02-06 06:38] LABS: ABS Lymphocytes 0.4 10^3/uL (1.0-4.8); ABS Monocytes 0.1 10^3/uL (0.0-0.9); ABS Neutrophils 8.3 10^3/uL (1.5-7.6); Eosinophil % 0.2 %; Hematocrit 25.2 % (35-45); Hemoglobin 8.7 g/dL (11.5-14.3); Mean Corpuscular Hemoglobin 29.8 pg (27-33); Mean Corpuscular Hgb Conc 34.5 g/dL (31-36); Mean Corpuscular Volume 86.4 fL (80-97); Mean Platelet Volume 6.8 fL (7.5-11.2); Platelet Count 407 10^3/uL (150-450); Red Blood Count 2.92 10^6/uL (3.63-4.92); Red Cell Distribution Width 16.3 % (12-17); White Blood Count 8.9 10^3/uL (3.8-11.8)
[2023-02-06 06:48] LABS: Calcium 8.4 mg/dL (8.6-10.3); Creatinine, Serum 0.63 mg/dL (0.51-0.95); Magnesium 2.5 mg/dL (1.9-2.7); Phosphorus 3.7 mg/dL (2.5-5.0); Potassium 4.2 mmol/L (3.5-5.0); eGFR CKD-EPI 107.3 (>60)
[2023-02-06] MEDS: Mometasone/Formoter 200/5 MDI INH SCH ×2 (07:34→19:12)
[2023-02-06] MEDS: Magnesium Hydroxide LIQ 30 ML UDC PO SCH ×2 (08:37→20:56)
[2023-02-06] MEDS: Morphine ER 30 mg TAB ** extended release PO SCH ×2 (08:38→20:59)
[2023-02-06] MEDS ORDERED: fentaNYL 100 mcg/2 ml 50 MCG/ML VIAL ONE (10:22)
[2023-02-06] MEDS ORDERED: Midazolam 2 mg/2 ml VIAL 1 mg/ml 2 ml VIAL (2 mg) ONE (10:22)
[2023-02-06] MEDS ORDERED: Midazolam 10 mg/10 ml VIAL 1 mg/ml 10 ml VIAL (10 mg) IV SLOW PU ONE (11:19)
[2023-02-06] MEDS ORDERED: fentaNYL 100 mcg/2 ml 50 MCG/ML VIAL IV SLOW PU ONE (11:19)
[2023-02-06] MEDS ORDERED: Flumazenil 0.5 mg/5 ml 0.1 MG/ML 5 ml VIAL IV PRN (11:19)
[2023-02-06] MEDS ORDERED: Naloxone 0.4 mg VIAL 0.4 mg/ml 1 ml VIAL IV PUSH PRN (11:19)
[2023-02-06] MEDS: HYDROcodone/ACETAMIN 5/325 mg TAB PO PRN ×2 (12:39→16:25)
[2023-02-06] MEDS: Senna TAB 8.6 mg TAB PO SCH (21:00)
[2023-02-06] MEDS: Enoxaparin 40 MG/0.4 ML SYR SUBCUT SCH (21:01)
[2023-02-07] MEDS: HYDROcodone/ACETAMIN 5/325 mg TAB PO PRN (00:03)
[2023-02-07 06:16] LABS: ABS Lymphocytes 0.3 10^3/uL (1.0-4.8); ABS Neutrophils 5.9 10^3/uL (1.5-7.6); Eosinophil % 0.3 %; Hemoglobin 8.6 g/dL (11.5-14.3); Lymphocyte % 4.3 %; Mean Corpuscular Hemoglobin 29.5 pg (27-33); Mean Corpuscular Hgb Conc 34.2 g/dL (31-36); Mean Corpuscular Volume 86.3 fL (80-97); Mean Platelet Volume 6.7 fL (7.5-11.2); Platelet Count 425 10^3/uL (150-450); Red Cell Distribution Width 16.4 % (12-17); White Blood Count 6.2 10^3/uL (3.8-11.8)
[2023-02-07 06:34] LABS: Uric Acid 4.8 mg/dL (2.3-6.6)
[2023-02-07] MEDS: Mometasone/Formoter 200/5 MDI INH SCH (07:28)
[2023-02-07 08:20] LABS: Body Fluid Source Cerebral Spinal
[2023-02-07 09:25] LABS: Body Fluid Appearance Bloody; Body Fluid Color Pink; Body Fluid WBC 57 /mcL; CSF Tube # 2
[2023-02-07] MEDS: Morphine ER 30 mg TAB ** extended release PO SCH (09:32)
[2023-02-07] MEDS: Magnesium Hydroxide LIQ 30 ML UDC PO SCH (09:33)
[2023-02-07 10:05] LABS: Body Fluid Mono 1 %; Body Fluid Total Cells Counted 200
[2023-02-07 10:29] VITALS: BP 113/71
[2023-02-07] MEDS ORDERED: HYDROcodone/ACETAMIN 5/325 mg TAB PO PRN ×2 (13:39→13:40)
[2023-02-10 13:11] LABS: BLYM Result Summary Positive; BLYM Source Left iliac mass; BLYM Tissue ID S23-9070 B
== END 2023-02-07 14:00 | disposition home or self-care (01) | DRG 696 ==
LOC: EDHOLD 15:48 → ED 15:48 → SUATTDRO 01-31 04:08 → MED 01-31 15:23 → SUATTDRO 02-02 10:00
PROVIDERS: ADMIT Hospitalist; ATTEND Hospitalist

== ENCOUNTER 2023-03-05 18:12 | Observation (INO) ==
[2023-03-05 21:27] LABS: Hematocrit 31.8 % (35-45); Hemoglobin 10.6 g/dL (11.5-14.3); Mean Corpuscular Hemoglobin 28.4 pg (27-33); Mean Corpuscular Hgb Conc 33.3 g/dL (31-36); Mean Corpuscular Volume 85.2 fL (80-97); Mean Platelet Volume 7.3 fL (7.5-11.2); Platelet Count 349 10^3/uL (150-450); Red Blood Count 3.73 10^6/uL (3.63-4.92); Red Cell Distribution Width 18.8 % (12-17); White Blood Count 35.4 10^3/uL (3.8-11.8)
[2023-03-05 21:33] LABS: ABS Basophils 0.3 10^3/uL (0.0-0.1); ABS Eosinophils 0.6 10^3/uL (0.0-0.5); ABS Lymphocytes 0.4 10^3/uL (1.0-4.8); ABS Neutrophils 34.1 10^3/uL (1.5-7.6); Eosinophil % 1.7 %; Lymphocyte % 1.2 %
[2023-03-05 21:42] LABS: Albumin 3.4 g/dL (3.2-5.2); Calcium 8.4 mg/dL (8.6-10.3); Potassium 3.9 mmol/L (3.5-5.0); Total Bilirubin 0.4 mg/dL (0.2-1.0)
[2023-03-05 21:48] LABS: Albumin/Globulin Ratio 1.9 (1-3); Creatinine, Serum 0.65 mg/dL (0.51-0.95); Globulin 1.8 g/dL (2-4); Total Protein 5.2 g/dL (6.4-8.9); eGFR CKD-EPI 106.5 (>60)
[2023-03-05] MEDS ORDERED: Iohexol 350 (CONTRAST) 500 ML MDV IV ONE (21:59)
[2023-03-05] MEDS ORDERED: Al Hydrox/Mg Hydrox/Simet LIQ 30 ML UDC PO ONE (22:17)
[2023-03-05 23:04] LABS: High Sensitivity Troponin 1 Hr 3 pg/mL (<15)
[2023-03-06] MEDS ORDERED: Morphine ER 30 mg TAB ** extended release PO SCH (02:00)
[2023-03-06] MEDS ORDERED: Senna TAB 8.6 mg TAB PO PRN (02:02)
[2023-03-06] MEDS ORDERED: Polyethylene Glycol 3350 17 GM PACKET PO PRN (02:02)
[2023-03-06] MEDS: Pantoprazole VIAL 40 MG VIAL IV SCH ×2 (03:45→04:07)
[2023-03-06] MEDS: Sucralfate 1 gm SUSP 1 GM/10 ML UDC PO SCH ×3 (03:45→13:02)
[2023-03-06] MEDS: Prochlorperazine 5 mg/ml 2 ml VIAL (10 mg) IV PRN ×2 (04:29→10:20)
[2023-03-06] MEDS ORDERED: Lorazepam PYXIS KEY PRN (10:07)
[2023-03-06] MEDS ORDERED: LORazepam 2 mg VIAL 1 ml IV PUSH PRN (10:07)
[2023-03-06] MEDS ORDERED: fentaNYL 100 mcg/2 ml 50 MCG/ML VIAL ONE (13:14)
[2023-03-06] MEDS ORDERED: Lidocaine 1% VIAL 10 MG/ML 30 ML VIAL ONE ×2 (13:50→13:52)
[2023-03-06 16:12] VITALS: BP 113/65
== END 2023-03-06 16:21 | disposition home or self-care (01) ==
LOC: ED 18:12 → OBSVTOIN 03-06 01:21 → INTOOBSV 03-06 01:21 → SUATTDRO 03-06 01:21 → EDHOLD 03-06 01:21
PROVIDERS: ADMIT Internal Medicine; ATTEND Hospitalist